=== PATIENT | female | born 2000 | race African-American/Black ===

== ENCOUNTER 2021-04-08 11:05 | Emergency (ER) | payer MEDICAID ==
[~2021-04-08] VITALS: Ht 160 cm; Wt 77.1 kg
[2021-04-08 11:32] VITALS: BP 121/70
[2021-04-08 13:40] LABS: BASOPHILS % (AUTO) 0.3 % (0.0-2.0); EOSINOPHILS # (AUTO) 0.2 K/uL (0-0.4); EOSINOPHILS % (AUTO) 2.1 % (0.0-4.0); HEMATOCRIT 41.8 % (36-48); HEMOGLOBIN 14.3 g/dL (12.0-16.0); LYMPHOCYTES # (AUTO) 2.6 K/uL (2.5-16.5); LYMPHOCYTES % (AUTO) 32.8 % (20.5-51.1); MEAN CORPUSCULAR HEMOGLOBIN 31 pg (27-31); MEAN CORPUSCULAR HGB CONC 34 g/dL (33-37); MEAN CORPUSCULAR VOLUME 91.7 fL (80-94); MONOCYTES # (AUTO) 0.7 K/uL (0.8-1.0); MONOCYTES % (AUTO) 8.8 % (1.7-9.3); NEUTROPHILS # (AUTO) 4.5 K/uL (1.8-7.7); PLATELET COUNT (AUTO) 229 K/uL (140-450); RED BLOOD CELL COUNT(AUTO) 4.56 MIL/uL (4.20-5.40); RED CELL DISTRIBUTION WIDTH 13.7 % (11.6-13.7); WHITE BLOOD COUNT (AUTO) 8.1 K/uL (4.8-10.8)
[2021-04-08 13:57] LABS: PROTHROMBIN TIME 9.9 secs (10.8-13.4)
[2021-04-08 15:24] LABS: APPEARANCE,URINE CLEAR (CLEAR); BILIRUBIN,URINE NEGATIVE (NEGATIVE); BLOOD, URINE 3+ (NEGATIVE); COLOR,URINE RED (YELLOW); LEUKOCYTE ESTERASE ,URINE NEGATIVE (NEGATIVE); NITRITE, URINE NEGATIVE (NEGATIVE); PH,URINE 6.5 (5.0-9.0); UGLUCOSE NEGATIVE (NEGATIVE)
[2021-04-08 15:48] LABS: RBC,URINE 0-5 /HPF (0-5); WBC,URINE NONE SEEN /HPF (0-5)
--- NOTE | 2021-04-08 16:10 | NUR ---
20 y/o female, c/o vaginal bleeding for 2 weeks, flank pain, pelvic pain, bloating and abd pain. denies n/v/d. denies sob, cough, cp, fever, chills or sore throat. denies anyone else sick in the household. pt states pain is 8/10 at this time. skin is pink/warm/dry. bl lung bases clear, even and unlabored breathing. heart rate is even and normal. denies hematuria, dysuria, constipation. ermd made aware of pt status. pmh: ovarian cyst, asthma nka med: albuterol dairy upset stomach
[2021-04-08] MEDS ORDERED: NAPR-54 PO (16:11)
[2021-04-08 16:27] VITALS: BP 121/70
--- NOTE | 2021-04-08 16:27 | NUR ---
Patient discharged with v/s stable. Written and verbal after care instructions given and explained. Patient alert, oriented and verbalized understanding of instructions. Ambulatory with steady gait. All questions addressed prior to discharge. ID band removed. Patient advised to follow up with PMD. Rx of naproxen given. Patient educated on indication of medication including possible reaction and side effects. Opportunity to ask questions provided and answered. copy of work note and lab/us results given
== END 2021-04-08 16:27 | disposition home or self-care (01) ==
LOC: MED 11:05
DX: N83.201 Unspecified ovarian cyst, right side (principal); Z79.899 Other long term (current) drug therapy; Z98.890 Other specified postprocedural states
CPT/HCPCS: 36415; 76856; 81001; 84702; 84703; 85025; 85610; 85730; 99284